=== PATIENT | female | born 1945 | race Caucasian/White ===

== ENCOUNTER 2019-04-27 11:48 | Emergency (ER) | payer MEDICARE, BC, SELFPAY ==
[2019-04-27] VITALS (55 sets, daily range): BP systolic 118–179; BP diastolic 36–128; PULSE 50–65; RESP 15–20; TEMP 36–36.9; O2SAT 86–100
--- NOTE | 2019-04-27 11:53 | ED.GENADUL_ITS ---
Discharge Plan Disposition Patient Disposition: [facility] Condition: Stable Discharge Details Chief Complaint: Orthopedic Clinical Impression: Fracture of distal femur, History of knee replacement Primary Care Provider: None,None ED Provider: Janett Dupree Home Meds and New Rx's Prescriptions: Continued sertraline 25 mg Tablet 25 mg PO DAILY RF: 0 hydrochlorothiazide 25 mg Tablet 25 mg PO DAILY RF: 0 oxybutynin chloride 5 mg Tablet 5 mg PO BID RF: 0 atenolol 50 mg Tablet 50 mg PO DAILY RF: 0 losartan 25 mg Tablet 25 mg PO DAILY RF: 0 Discharge Data Discharge Date/Time-TO BE ENTERED AT DEPARTURE: 04/27/19 19:21 Discharge Physician: Janett Dupree Medical Decision Making 1215 -- 74-year-old female 4 months status post right total knee replacement who presents with right knee injury after mechanical fall down one stair onto her right knee. Denies any other injuries. Complaining of pain from her right thigh to her right knee. Denies any hip, foot or ankle pain. Denies head injury. She was given 250 mcg of fentanyl and 4 mg of Zofran prior to arrival. She is awake and alert and appears uncomfortable with any exam of her knee. She is unable to bend or move her knee due to pain. No tenderness palpation of right hip. There is no open wounds or deformity. Will send for right knee and femur x-rays. A dose of fentanyl ordered due to increased pain but due to significant dose of fentanyl prior to arrival, will hold at this time. 1300 --discussed with Ortho Dr. Marie -recommends transferred to [facility] as this is a periprosthetic fracture. 1400 -- d/w [facility] hospitalist Dr. Peacock who accepts patient for transfer. Patient was complaining of spasming. Discussed with [facility] orthopedics Dr. Styles who recommends a knee immobilizer and Valium for spasming and to hold on traction at this time. Able to place knee immobilizer and pain and patient feels much better. Discussed with [facility] and patient will be available for transfer after 8 PM. 192 --EMS now here to take patient to [facility]. She was given a dose of fentanyl prior to transfer. Medical Records Medical records reviewed: Yes I reviewed the patient's medical records. Imaging Data Radiologic Study: Radiologist's impression: RIGHT KNEE: Two views were obtained. There is a comminuted fracture of the distal femur. There is a total knee joint replacement in position. The components of the joint replacement appear fairly well maintained although the fracture plane could extend to the superior most aspect of the femoral component. RIGHT FEMUR: Four views were obtained and show a comminuted fracture of the distal femur which may extend into the bone at the superior aspect of the femoral component of the knee joint replacement. No additional fracture is seen involving the femur. Lab Data Lab results reviewed: Yes I reviewed the patient's lab results. Laboratory Tests Range/Units 04/27/19 04/27/19 14:16 14:16 WBC (4.4-10.8) k/cumm 9.97 RBC (4.00-5.20) m/cumm 4.11 Hgb (12.0-15.5) g/dL 12.9 Hct (36.0-46.0) % 40.2 MCV (80-95) fL 97.8 H MCH (27.0-33.0) pg 31.4 MCHC (32.0-36.0) g/dL 32.1 RDW (11.7-14.6) % 12.9 Plt Count (130-400) x1000/uL 266 MPV (8.0-11.0) fL 9.4 Immature Gran % 0.2 Neutrophils % 86.5 Lymphocytes % 9.3 Monocytes % 2.9 Eosinophils % 0.9 Basophils % 0.2 Absolute Neutrophils (1.2-6.7) k/cumm 8.62 H Absolute Lymphocytes (1.2-3.4) k/cumm 0.93 L Absolute Monocytes (0.11-0.7) k/cumm 0.29 Absolute Eosinophils (0.0-0.7) k/cumm 0.09 Absolute Basophils (0.0-0.2) k/cumm 0.02 Sodium (136-145) mmol/L 143 Potassium (3.5-5.1) mmol/L 3.4 L Chloride (98-107) mmol/L 104 Carbon Dioxide (21.0-32.0) mmol/L 28.2 Anion Gap (3-11) mmol/L 10.8 BUN (7-18) mg/dL 25 H Creatinine (0.55-1.02) mg/dL 0.89 Estimated GFR/1.73 m2 (mL/min/1.73m2) >= 60.00 Glucose (70-100) mg/dL 131 H Calcium (8.5-10.1) mg/dL 8.9 ECG Data Attestation: I personally reviewed and interpreted this ECG (s) as follows: Interpretation: Rate of 48, sinus, T wave inversion in lead III and V2. No acute ST elevation or depression. DC 192. QTc 407. QRS 90. No old EKG to compare. HPI General Mode of arrival: EMS . Date/Time Provider Initiated Documentation: 04/27/19 11:52 . Limitations to Documentation: no limitations . Information obtained by: patient . HPI Narrative: Patient is a 74-year-old fema le with a history of hypertension, hyperlipidemia and right total knee replacement in December [address] Allan at [facility] who presents with right knee injury prior to arrival. Patient states she was walking down 2 stairs when she missed the last step and fell onto her right knee. She is complaining of pain in her right thigh and right knee. She denies any hip, ankle or foot pain. She denies any other injuries including head injury, chest pain, abdominal pain, neck or back pain. Related Data Home Medications Medication Instructions Recorded Confirmed atenolol 50 mg PO DAILY 04/27/19 04/27/19 hydrochlorothiazide 25 mg PO DAILY 04/27/19 04/27/19 losartan 25 mg PO DAILY 04/27/19 04/27/19 oxybutynin chloride 5 mg PO BID 04/27/19 04/27/19 sertraline 25 mg PO DAILY 04/27/19 04/27/19 Allergies Allergy/AdvReac Type Severity Reaction Status Date / Time No Known Allergies Allergy Unverified 04/27/19 13:03 General Stated Complaint: Orthopedic KATHY: 3 Review of Systems Review of Systems All systems reviewed & are unremarkable except as noted in HPI and below Constitutional Reports as per HPI, Denies chills and Denies fever(s) Eyes Denies blurry vision ENT Denies dizziness, Denies sore throat and Denies throat swelling Cardiovascular Denies chest pain and Denies dyspnea Respiratory Denies cough and Denies dyspnea Gastrointestinal Denies abdominal pain, Denies diarrhea and Denies vomiting Genitourinary Denies hematuria and Denies dysuria Musculoskeletal Denies back pain and Denies numbness Integumentary/Breasts Denies lesions and Denies rash Neurologic Denies dizziness, Denies focal weakness and Denies numbness Allergic/Immunologic Denies throat swelling [facility] Medical History (Updated 04/27/19 @ 16:00 by Janett Dupree DO) Fibrocystic breast disease (Acute) HTN (hypertension) (Chronic) Hx of hyperlipidemia (Acute) Surgical History (Updated 04/27/19 @ 16:00 by Janett Dupree DO) H/O tooth extraction (Acute) History of total right knee replacement (Acute) S/P dilation and curettage (Acute) Social History Smoking/Tobacco Use Status: Former Tobacco Use Alcohol Intake: current Alcohol Intake frequency: holidays/special occasions only Alcohol type: hard liquor Substance use type: does not use Do you feel safe at home: Yes Do you feel safe in your relationship?: Yes Exam Const General: cooperative, healthy appearing and no acute distress HENMT Head: normal to inspection Mouth: oral mucosae normal Eyes General: appearance normal, both eyes and all related structures Neck Neck: normal visual inspection Resp Effort & Inspection: normal respiratory effort and able to speak in complete sentences Cardio Rate: regular rate Skin General skin exam: no rashes or lesions noted Neuro General: alert, awake and oriented x3 Motor: muscle tone normal throughout Psych Appearance: grossly normal Affect: normal affect Course Vital Signs Temperature 97.9 F 04/27/19 11:44 Pulse 50 L 04/27/19 11:44 Respiratory Rate 15 04/27/19 11:44 Blood Pressure 129/36 L 04/27/19 11:44 Pulse Oximetry 95 04/27/19 11:44 Temperature 97.9 F 04/27/19 11:44 Temperature Source Skin 04/27/19 11:44 Pulse 50 L 04/27/19 11:44 Respiratory Rate 15 04/27/19 11:44 Blood Pressure 129/36 L 04/27/19 11:44 Pulse Oximetry 95 04/27/19 11:44 Oxygen Delivery Method Room Air 04/27/19 11:44 Oxygen Flow Rate 0 04/27/19 11:44
--- NOTE | 2019-04-27 12:21 | DI.RAD_ITS ---
SYMPTOM/DIAGNOSIS: S/P FALL, ? FX, H/O RT TKR, PAIN RIGHT KNEE: Two views were obtained. There is a comminuted fracture of the distal femur. There is a total knee joint replacement in position. The components of the joint replacement appear fairly well maintained although the fracture plane could extend to the superior most aspect of the femoral component. RIGHT FEMUR: Four views were obtained and show a comminuted fracture of the distal femur which may extend into the bone at the superior aspect of the femoral component of the knee joint replacement. No additional fracture is seen involving the femur.
[2019-04-27] MEDS: fentaNYL 100 MCG/2 ML VIAL 25 MCG IVP (13:01)
[2019-04-27] MEDS: fentaNYL 100 MCG/2 ML VIAL ×2 (13:33→18:52)
[2019-04-27] MEDS: Normal Saline Flush 10 ML SYR IVP ×3 (13:39→18:53)
[2019-04-27 14:31] LABS: Abs Immature Grans 0.02 k/cumm (0.0-0.09); Absolute Basophil Count 0.02 k/cumm (0.0-0.2); Absolute Eosinophil Count 0.09 k/cumm (0.0-0.7); Absolute Lymphocyte Count 0.93 k/cumm (1.2-3.4); Absolute Monocyte Count 0.29 k/cumm (0.11-0.7); Absolute Neutrophil Count 8.62 k/cumm (1.2-6.7); Basophils % 0.2; Eosinophils % 0.9; HCT 40.2 % (36.0-46.0); HGB 12.9 g/dL (12.0-15.5); Immature Grans % 0.2; Lymphocytes % 9.3; Mean Corp. HGB Concentration 32.1 g/dL (32.0-36.0); Mean Corpuscular Hemoglobin 31.4 pg (27.0-33.0); Mean Corpuscular Volume 97.8 fL (80-95); Mean Platelet Volume 9.4 fL (8.0-11.0); Monocytes % 2.9; Neutrophils % 86.5; Platelet Count 266 x1000/uL (130-400); RBC 4.11 m/cumm (4.00-5.20); RBC Distribution Width 12.9 % (11.7-14.6); White Blood Cell Count 9.97 k/cumm (4.4-10.8)
[2019-04-27] MEDS: fentaNYL 100 MCG/2 ML VIAL 50 MCG IVP (14:36)
[2019-04-27 14:47] LABS: Anion Gap 10.8 mmol/L (3-11); BUN 25 mg/dL (7-18); CO2 28.2 mmol/L (21.0-32.0); CREATININE 0.89 mg/dL (0.55-1.02); Calcium 8.9 mg/dL (8.5-10.1); Chloride 104 mmol/L (98-107); Glucose 131 mg/dL (70-100); Potassium 3.4 mmol/L (3.5-5.1); Sodium 143 mmol/L (136-145)
[2019-04-27] MEDS: diazePAM 5 MG TAB PO (15:08)
== END 2019-04-27 19:21 | disposition short-term general hospital (02) ==
PROVIDERS: Emergency Provider Physician Assistant
DX: M97.11XA Periprosthetic fracture around internal prosthetic right knee joint, initial encounter (principal); W10.8XXA Fall (on) (from) other stairs and steps, initial encounter; Z96.651 Presence of right artificial knee joint; I10 Essential (primary) hypertension
CPT/HCPCS: 36415; 73552; 80048; 93005; 96374; 96376; 99285; 73560; 85025; 93010; 99284; J3010; L1830

== ENCOUNTER 2025-04-16 15:25 | Emergency (ER) | payer OTHER, SELFPAY ==
[2025-04-16] VITALS (41 sets, daily range): BP systolic 101–183; BP diastolic 37–71; PULSE 64–75; RESP 14–24; TEMP 36.7; O2SAT 94–99
--- NOTE | 2025-04-16 15:25 | W.ED.GENAD ---
Discharge Plan Disposition Patient Disposition: Home Condition: Good Discharge Details Clinical Impression: Anterior dislocation of right shoulder Primary Care Provider: None,None ED Provider: Kady Lombardo Home Meds and New Rx's Prescriptions: Continued sertraline 25 mg Tablet 25 mg PO DAILY hydrochlorothiazide 25 mg Tablet 25 mg PO DAILY oxybutynin chloride 5 mg Tablet 5 mg PO BID atenolol 50 mg Tablet 50 mg PO DAILY losartan 25 mg Tablet 25 mg PO DAILY Discharge Instructions Instructions: Shoulder Dislocation (DC) Additional Instructions: Tylenol and ibuprofen over the counter for pain; follow the directions on the bottle. Keep your cut clean and dry. Allow the steri-strips to remain in place until they fall off naturally. Followup with orthopedics within one week- they will see you to schedule an appointment. You may have torn your rotator cuff. Keep the sling and swathe in place until you see orthopedics. Call your primary care doctor in the morning to schedule an appointment within the next two weeks to followup on your visit here. At that visit please discuss your CT scan which shows some erosive changes in your spine in your neck. Return to the emergency department for new or worsening symptoms including numbness or tingling in yoru arm or elsewhere, inability to move your arm, thick green or white discharge from your cut, uncontrolled pain, or if you have any other concerns. HPI General Mode of arrival: EMS. Date/Time Provider Initiated Documentation: 04/16/25 15:35. Limitations to Documentation: no limitations. Information obtained by: patient and EMS. HPI Narrative: 80yo F with hx HTN, HLD, presenting via EMS after a fall. Was going to get her mail, tripped at the mailbox, and fell landing on her right side including her right elbow. Not sure if she struck her head. No LOC. On a baby ASA, no other blood thinners. Has right elbow and right shoulder pain, described severe and achey. No MALAGON, N/V, numbness, tingling, weakness, vertgio. No lightheadedness, chest pain, or shortness of breath at any point. Otherwise in her usual state of health. Related Data Home Medications ?Medication ?Instructions ?Recorded ?Confirmed atenolol 50 mg tablet 50 mg PO DAILY 04/27/19 04/16/25 hydrochlorothiazide 25 mg tablet 25 mg PO DAILY 04/27/19 04/16/25 losartan 25 mg tablet 25 mg PO DAILY 04/27/19 04/16/25 oxybutynin chloride 5 mg tablet 5 mg PO BID 04/27/19 04/16/25 sertraline 25 mg tablet 25 mg PO DAILY 04/27/19 04/16/25 Allergies Allergy/AdvReac Type Severity Reaction Status Date / Time codeine AdvReac Intermediate gi pain Verified 04/16/25 15:31 General KATHY: 3 Review of Systems Narrative: see HPI Exam Narrative Exam Narrative: GENERAL: Alert, C-collar in place. SKIN: Warm and well perfused. HEAD: Atraumatic, normocephalic without edema, discoloration or evidence of trauma. Facial bones without deformities or tenderness. EYES: PERRL. No scleral icterus or conjunctival injection. Extraocular muscles intact without nystagmus or diplopia. NOSE: No discharge, tenderness, laxity. No nasal septal hematoma. MOUTH: No malocclusion or trismus. Moist mucus membranes without blood. NECK: Trachea midline. No discolorations or edema. Neck immobilized in cervical collar. CV: Regular rate and rhythm, Normal s1 and s2. No murmurs, rubs, or gallops. PV: Radial pulses 2+ bilaterally and symmetric. Dorsalis pedis pulses 2+ bilaterally and symmetric. 2+ capillary refill. CHEST: No abrasions or ecchymosis. Chest symmetric with respirations. No chest wall tenderness. No crepitus. Lungs are clear to auscultation bilaterally. ABDOMEN: No ecchymosis or abrasions. Soft, nondistended, nontender. BACK: No abrasions, skin openings, or ecchymosis. Upper thoracic midline tenderness, no step offs. PELVIC: Pelvis stable, nontender to lateral compression and palpation of symphysis pubis. MSK: No gross deformities. Right humeral head, clavicle, and elbow TTP, pain ROM at right shoulder and elbow. Otherwise tolerates full range of motion of extremities without tenderness. Linear skin tear right elbow ~5cm NEURO: GCS 15.? PERRL.? EOMI.? Fluent speech, no dysarthria. Motor- Right shoulder not tested, otherwise 5/5 strength symmetric bilateral upper and lower extremities including shoulder abductors/adductors, elbow flexors/extensors, wrist flexors/extensors, finger abductors/adductors, hipflexors/extensors, knee flexors/extensors, ankle dorsiflexors and planter flexors. Sensation- ?Intact to light touch and symmetric multiple dermatomes including upper and lower extremities Coordination- No dysmetria on finger to nose Reflexes- 1/4 achilles & patellar, no clonus Gait/station: ?deferred CRANIAL NERVES: II: Pupils equal and reactive, III, IV, : EOM intact, no gaze preference or deviation, no nystagmus. V: normal sensation in V1, V2, and V3 segments bilaterally VII: no asymmetry, no nasolabial fold flattening VIII: normal hearing to speech IX, X: normal palatal elevation, no uvular deviation XI: c-collar XII: midline tongue protrusion Procedure Joint Aspiration/Injection Date of Procedure: 04/16/25 Time of procedure: 17:30 Provider that performed the procedure: Krystin Sneed Indication: Dislocation Standard Time Out Performed: Yes Patient Consented: Verbally Local Anesthetic: Lidocaine 1% Amount of anesthetic used(mL): 15 Ultrasound: Not used Joint Aspirated: Right shoulder Patient Tolerated Procedure: well Joint Reduction Joint #1: Date of Procedure: 04/16/25 Time of procedure: 18:00 Provider that performed the procedure: Krystin Sneed Standard Time Out Performed: Yes Patient Consented: Written Pre-procedure medication: Fentanyl Amount of pre-procedure medication(mg): 50 Local Anesthetic: Lidocaine 1% Amount of anesthetic used(mL): 15 Side: right Joint reduction location: shoulder Post-Reduction Neuro Exam: intact Post-Reduction Vascular Exam: intact Post Reduction X-Ray Obtained: Yes Post Reduction X-Ray Results: reduced Splint Applied: Yes Patient Tolerated Procedure: well Laceration Laceration 1: Date of Procedure: 04/16/25 Time of procedure: 18:30 Patient Consented: Verbally Site: upper extremity Side (If applicable): right Description: linear Pre-repair:: wound explored, irrigated extensively and deep structures intact Skin layer closed with: other (steristrips) Procedural Sedation Date of Procedure: 04/16/25 Time of procedure: 17:30 Provider that performed the procedure: Kady Lombardo Indication: Pain control Patient Consented: Written Standard Time Out Performed: Yes Sedation Given: Propofol Amount of sedation(mg): 40 Preparation: satellite project site monitor applied, pulse oximeter, capnometry used, supplemental O2 applied and suction/airway equipment at bedside Time of Last PO Intake: 12:00 Note: Tolerated well, no complications. Medical Decision Making 80yo F with hx HTN, HLD, presenting with right shoulder pain via EMS after a MFFS. Recieved 1g tylenol from EMS [employer]. History not suggestive of syncope or cardiac event. Hypertensive on arrival (suspect 2/t pain), vital signs otherwise reassuring. Unknown HS, no LOC, baby aspirin no other blood thinners. On exam she has pain and tenderness to right shoulder and elbow and a skin tear to her right elbow, as well as some upper thoracic midline tenderness. No snuffbox tenderness. No evident injury elsewhere. Normal neurologic exam. Unknown last tetanus; will give booster here. Fentanyl for pain while awaiting results of imaging. No indication for labs. Skin tear repaired with steri-strips. CT head, cspine, and t spine independently reviewed; no intracranial hemmoraghe or mass on my view, radiology reads below. XRs shoulder, clavicle, elbow, wrist independently reviewed; anterior shoulder dislocation with no displaced fractures on my view, radiology reads below with no additional findings. Joint reduction attempted following interaarticular lidocaine 1% 15ml, pt still with significant pain and unable to tolerate any manipulation . Additional 10cc instilled without much improvement. Elected to proceed with conscious sedation; sedated with 40cc propofol with good effect and joint successfully reduced at bedside with external rotation. Post reduction film independently reviewed; reduced on my view, radiology read in agreement and notes possible rotator cuff tear. Placed in sling and swathe. Recovered from sedation well. RUE neurovascular intact. Full pain free ROM at c-spine. Ambulated steadily independently. Repeat VS reassuring. Discharged home to followup with orthopedics and PCP; discharge instructions and return precuations were reviewed with patient who verbalized understanding. All questions were answered and she is in full agreement with the plan. IMPRESSION: No acute intracranial findings on this noninfused CT scan of the brain. No evidence of acute cervical spine fracture, malalignment, nor acute compromise of the cervical spinal canal. Incidentally noted are erosive degenerative changes in the left facet joint at C4-5 level. IMPRESSION: No evidence of acute fracture of thoracic spinal column. MPRESSION: Anterior glenohumeral dislocation. MPRESSION: No acute osseous findings in the wrist. MPRESSION: No acute osseous findings in the elbow. IMPRESSION: Anterior dislocation glenohumeral joint.. No fractures of the right clavicle. IMPRESSION: Successful realignment of the glenohumeral joint. Significant decrease in height acromial space, most probably a full-thickness rotator cuff tear. PFSH All Active Problems (Updated 04/16/25 @ 19:04 by Kady Lombardo MD) Anterior dislocation of right shoulder (Acute) Medical History (Updated 04/16/25 @ 19:04 by Kady Lombardo MD) Fibrocystic breast disease Hx of hyperlipidemia HTN (hypertension) Surgical History (Updated 04/27/19 @ 16:00 by Janett Dupree DO) S/P dilation and curettage H/O tooth extraction History of total right knee replacement Social History Smoking/Tobacco Use Status: Former Tobacco Use Smoking risk assessment performed?: Yes Alcohol Intake: current Alcohol Intake frequency: holidays/special occasions only Alcohol type: hard liquor Substance use type: does not use Do you feel safe at home: Yes Do you feel safe in your relationship?: Yes
--- NOTE | 2025-04-16 15:30 | DI.RAD_ITS ---
Exam(s) XR WRIST RT COMPLETE EXAM: XR WRIST RT COMPLETE CLINICAL HISTORY: fall, R wrist pain. TECHNIQUE: 2D digital imaging was performed. COMPARISON: No exams were available for comparison FINDINGS: 3 views There is no evidence of acute fracture nor dislocation nor significant ulnar variance. Scaphoid appears intact. Scapholunate distance upper normal. IMPRESSION: No acute osseous findings in the wrist. DATA REPOSITORY: RADIATION DOSE DELIVERED:
--- NOTE | 2025-04-16 15:30 | DI.RAD_ITS ---
Exam(s) XR ELBOW RT COMPLETE EXAM: XR ELBOW RT COMPLETE CLINICAL HISTORY: fall, R shoulder eblow pain and tenderness. TECHNIQUE: 2D digital imaging was performed. COMPARISON: No exams were available for comparison FINDINGS: 3 views Limited three-view study reveals no evidence of elbow fracture nor dislocation. No obvious joint effusion there is no swelling of the olecranon bursa. Radial head and neck appear unremarkable. Epicondyles appear unremarkable. IMPRESSION: No acute osseous findings in the elbow. DATA REPOSITORY: RADIATION DOSE DELIVERED:
--- NOTE | 2025-04-16 15:30 | DI.CT_ITS ---
Exam(s) CT HEAD CERVICAL SPINE WO EXAM: CT HEAD CERVICAL SPINE WO CLINICAL HISTORY: fall. TECHNIQUE: Imaging Protocol: Axial computed tomography images with coronal and sagittal reformatted images were created and reviewed COMPARISON: No exams were available for comparison FINDINGS: BRAIN: There are no skull fractures nor fluid in the visualized paranasal sinuses. There is no evidence of intracranial hemorrhage, mass effect, or shift of midline structures. There are no extra-axial fluid collections. The ventricles are not enlarged or shifted and there is no blood within the ventricular system nor within the basal cisterns. There is mild bilateral periventricular hypodensity consistent with chronic small vessel disease. No evidence of obvious acute infarct. CERVICAL SPINE: No evidence of fracture. There is mild degenerative anterolisthesis of C4 upon C5 related to facet arthropathy. There appears to be an element of erosive arthropathy in the left facet joint at C 4-5 level. The right facet joint at this level appears unremarkable as do other facet joints with the exception of mild degenerative changes. There is multilevel disc space narrowing at C3-4, C4-5 and C5-6 levels. C6-7 exhibits normal height as does C7-T1. Spinous process is are intact. IMPRESSION: No acute intracranial findings on this noninfused CT scan of the brain. No evidence of acute cervical spine fracture, malalignment, nor acute compromise of the cervical spinal canal. Incidentally noted are erosive degenerative changes in the left facet joint at C4-5 level. RADIATION DOSE DELIVERED: 1,410.26mGy.cm Total DLP DATA REPOSITORY: All CT scans at this facility are submitted to the National Radiology Data Registry (NRDR) Dose Index Registry (DIR) with the [employer] (A[employer]). RADIATION OPTIMIZATION: All CT scans at this facility use at least one of these dose optimization techniques: automated exposure control; mA and/or kV adjustment per patient size (includes targeted exams where dose is matched to clinical indication); or iterative reconstruction.
--- NOTE | 2025-04-16 15:30 | DI.RAD_ITS ---
Exam(s) XR CLAVICLE RT EXAM: XR CLAVICLE RT CLINICAL HISTORY: fall, R clavicle tenderness. TECHNIQUE: 2D digital imaging was performed. COMPARISON: No exams were available for comparison FINDINGS: Two views There is no evidence of right clavicle fracture and no dislocation of the AC joint although there is some degenerative changes in the AC joint evident. There is an anterior subcoracoid dislocation glenohumeral joint IMPRESSION: Anterior dislocation glenohumeral joint. No fractures of the right clavicle. DATA REPOSITORY: RADIATION DOSE DELIVERED:
--- NOTE | 2025-04-16 15:30 | DI.RAD_ITS ---
Exam(s) XR SHOULDER RT COMPLETE 2+V EXAM: XR SHOULDER RT COMPLETE 2+V CLINICAL HISTORY: fall, R shoulder eblow pain and tenderness. TECHNIQUE: 2D digital imaging was performed. COMPARISON: No exams were available for comparison FINDINGS: Four views There is anterior dislocation of the humeral head. No obvious fractures. IMPRESSION: Anterior glenohumeral dislocation. DATA REPOSITORY: RADIATION DOSE DELIVERED:
[2025-04-16] MEDS: fentaNYL 100 MCG/2 ML VIAL 25 MCG IVP (15:50)
[2025-04-16] MEDS: Tetanus & Diphtheria Tox,ADULT 0.5 ML VIAL IM (15:53)
[2025-04-16] MEDS: fentaNYL 100 MCG/2 ML VIAL 50 MCG IVP ×2 (16:15→17:26)
--- NOTE | 2025-04-16 16:17 | DI.CT_ITS ---
Exam(s) CT THORACIC SPINE WO EXAM: CT THORACIC SPINE WO CLINICAL HISTORY: fall from stand, upper thoracic midline tenderness. TECHNIQUE: Imaging Protocol: Axial computed tomography images with coronal and sagittal reformatted images were created and reviewed. CONTRAST MATERIAL: Intravenous: None COMPARISON: CR XR SHOULDER RT COMPLETE 2+V from 04/16/2025 CR XR CLAVICLE RT from 04/16/2025 FINDINGS: Bones: No evidence of fracture nor listhesis. No facet joint malalignment evident. No adjacent posterior rib fractures identified. No abnormal widening of the paraspinal lines. Soft tissues: No large disk herniations are identified. IMPRESSION: No evidence of acute fracture of thoracic spinal column. Reports called by myself to ER provider 04/16/2025 at 4:47 p.m. RADIATION DOSE DELIVERED: 1,853.4mGy.cm Total DLP DATA REPOSITORY: All CT scans at this facility are submitted to the National Radiology Data Registry (NRDR) Dose Index Registry (DIR) with the [employer] ([employer]). RADIATION OPTIMIZATION: All CT scans at this facility use at least one of these dose optimization techniques: automated exposure control; mA and/or kV adjustment per patient size (includes targeted exams where dose is matched to clinical indication); or iterative reconstruction.
[2025-04-16] MEDS: Ketorolac 15 MG/ML VIAL IVP (17:26)
[2025-04-16] MEDS: Lidocaine 2% Multi-Dose 20 ML VIAL IJ (17:38)
[2025-04-16] MEDS: Lidocaine 1% Multi-Dose 50 ML VIAL IJ (17:39)
--- NOTE | 2025-04-16 18:00 | DI.RAD_ITS ---
Exam(s) XR SHOULDER RT COMP POST REDUC EXAM: XR SHOULDER RT COMP POST REDUC CLINICAL HISTORY: Post reduction. TECHNIQUE: 2D digital imaging was performed. COMPARISON: CR XR SHOULDER RT COMPLETE 2+V from 04/16/2025 FINDINGS: Two views There there has been realignment of the glenohumeral joint. No obvious fractures evident. It is noted that the humeral head exhibits superior subluxation in the glenoid fossa with significant diminution of the subacromial space. This implies what is most probably a full-thickness rotator cuff tear IMPRESSION: Successful realignment of the glenohumeral joint Significant decrease in height acromial space, most probably a full-thickness rotator cuff tear. DATA REPOSITORY: RADIATION DOSE DELIVERED:
[2025-04-16] MEDS: Propofol 200 MG/20 ML VIAL 80 MG IVP (18:04)
--- NOTE | 2025-04-16 18:13 | RESPIRATORY ---
8613-Paged to ED to assist with conscious sedation. Vitals HR 70, RR 18, EtCO2 37, 98% on RA. Pt placed on EtCO2 NC with suction, ambu bag and oral airway at bedside. Pt tolerated procedure with post sedation vitals HR 67, RR 16, EtCO2 33 and SpO2 96%.
--- NOTE | 2025-04-20 14:18 | NUR.NOTE ---
Access chart to print the demographic sheet to go with [facility] billing requisitions and discharge diagnosis.Nursing Note:
== END 2025-04-16 20:02 | disposition home or self-care (01) ==
LOC: ER 19:27
PROVIDERS: Emergency Provider Student in an Organized Health Care Education/Training Program
DX: S43.014A Anterior dislocation of right humerus, initial encounter (principal); M25.521 Pain in right elbow; I10 Essential (primary) hypertension; E78.5 Hyperlipidemia, unspecified; Z79.82 Long term (current) use of aspirin; Z23 Encounter for immunization; W10.1XXA Fall (on)(from) sidewalk curb, initial encounter; Y93.01 Activity, walking, marching and hiking; Y92.89 Other specified places as the place of occurrence of the external cause
CPT/HCPCS: 23650; 73030; 90714; 96374; 99156; 99157; 99285; 70450; 72125; 72128; 73000; 73080; 73110; J1885; J2003; J2704; J3010

== ENCOUNTER 2025-04-22 14:49 | Outpatient (CLI) | payer OTHER, SELFPAY ==
--- NOTE | 2025-04-22 14:30 | DI.RAD_ITS ---
Exam(s) XR SHOULDER RT COMPLETE 2+V EXAM: XR SHOULDER RT COMPLETE 2+V CLINICAL HISTORY: F/U RIGHT SHOULDER INJURY. TECHNIQUE: 2D digital imaging was performed. Three views. COMPARISON: CR XR SHOULDER RT COMP POST REDUC from 04/16/2025 CR XR SHOULDER RT COMPLETE 2+V from 04/16/2025 FINDINGS: BONES: No acute fracture is present. No bony destructive lesion is seen. There is severe spurring at the undersurface of the acromion and AC joint. Spurring at greater tuberosity. JOINTS: No dislocation present. Glenohumeral joint space is maintained. SOFT TISSUE: Normal. IMPRESSION: Severe spurring at the undersurface of the acromion. DATA REPOSITORY: RADIATION DOSE DELIVERED:
== END 2025-04-22 14:50 | disposition home or self-care (01) ==
LOC: DIORS 14:49
PROVIDERS: Visit Provider Student in an Organized Health Care Education/Training Program
DX: S43.014A Anterior dislocation of right humerus, initial encounter (principal); M25.711 Osteophyte, right shoulder
CPT/HCPCS: 73030